=== PATIENT | female | born 1990 | race African-American/Black ===

== ENCOUNTER 2017-11-09 14:37 | Emergency (ER) | payer MEDICAID ==
[~2017-11-09] VITALS: Ht 177.8 cm; Wt 73.0 kg
[~2017-11-09 14:37] MED LIST: FERR-43 PO; FOLI-43 PO; PREN-88 PO
[2017-11-09] MEDS ORDERED: IBUPROFEN 600MG TABLET PO ONE (17:30)
[2017-11-09] MEDS ORDERED: TETANUS, DIPHTHERIA, PERTUSSIS VAC/PF 0.5ML (>7YR OLD) IM ONE (18:00)
[2017-11-09 18:10] VITALS: BP 110/75
== END 2017-11-09 18:11 | disposition home or self-care (01) ==
LOC: ER 16:57
DX: K12.2 Cellulitis and abscess of mouth (principal); F12.10 Cannabis abuse, uncomplicated; Y09 Assault by unspecified means
CPT/HCPCS: 90471; 90715; 99283